=== PATIENT | male | born 1980 | race Caucasian/White ===

== ENCOUNTER 2021-12-30 07:22 | Outpatient (CLI) | payer BC, SELFPAY ==
--- NOTE | 2022-01-21 14:42 | WPDSLEEPSTUD ---
Sleep Study Date of Study: 12/30/21 Ordering Provider: Kaylie Rivera NP Interpreting Physician: Haylee Rowland DO Sleep Study Type: Polysomnogram Height: 1.78 m Weight: 72.575 kg Body Mass Index: 22.9 Neck Circumference (inches): 15 [place]: 4 Reason for Sleep Study Muscle jerks during sleep Sleep History The patient is a 41-year-old male with no major medical issues that had a sleep study ordered by his primary care for evaluation of muscle jerks during sleep. The patient rarely awakens from sleep short of breath. He rarely awakens at night with heartburn, belching or. He constantly snores loud enough that others complain. He occasionally has trouble sleeping when he has a cold. He denies waking up gasping for throughout the night. He occasionally has breathing problems at night observed by himself or others. He denies sweating excessively at night. He denies having heart palpitations or irregular heartbeats during the night. He occasionally falls asleep during the day but never while driving. Denies sleep paralysis, cataplexy and hypnagogic / hypnopompic hallucinations. He occasionally has trouble at school or work due to sleepiness. He denies having nightmares. He frequently remembers his dreams. He frequently has thoughts racing through his mind. He rarely feels sad or depressed. He frequently has anxiety. He rarely has muscular tension. He constantly notices parts of his body jerk. He constantly kicks during the night. He denies having crawling and aching feelings legs as well as leg pain during the night. He frequently grinds his teeth during sleep but denies awakening with morning jaw pain. He denies being bothered by pain during the day and being awakened by pain during the night. He denies waking feeling stiff in the morning. He denies waking up with sore or achy muscles. He denies waking up with pain the neck, spine and other joints. He goes to bed at 11:00 p.m. on both weekdays and weekends. It takes him 15-20 minutes to fall asleep. He wakes up 3 times throughout the night to urinate. He can fall back asleep within a few minutes. He wakes up at 8:30 a.m. on both weekdays and weekends. He typically gets 8-9 hours of sleep per night. He will stay in bed for 10 minutes after waking up in the morning. He currently lives with his and 4 children. He does not consume any caffeinated beverages within 2 hours of bedtime. He does not engage in physical exercise before bedtime. He will watch television before falling asleep. He does not take naps in afternoon or the evening. He drinks 3 cups of caffeinated beverage per day. He will drink wine twice per week. He denies tobacco and recreational drug use. [facility] Past Medical History Medical History Family history of prostate cancer in father Father was diagnosed with prostate cancer at 63. Surgical History Surgical History H/O vasectomy December 2020 Hx of LASIK both eyes, 09/2021 S/P ACL surgery Family History Family History Grandparent Cancer of unknown origin Father Malignant neoplasm of prostate Social History Social History Smoking status: Never smoker Alcohol intake: current Medications Home Medications Medication Instructions Recorded Confirmed Type multivit,Ca,min-iron 8 mg-folic 1 tablet PO .qd 11/26/21 12/11/21 History acid 200 mcg-lycopene 600 mcg tablet (Centrum Men) turmeric root extract 500 mg 500 mg PO DAILY 12/11/21 12/11/21 History capsule Sleep Procedure This test was performed using the [employer] multiple channel system including EOG, EEG, submental EMG, EKG, nasal and oral airflow using thermistors and nasal pressure sensors, chest and abdominal belts f
[2022-01-21 17:01] VITALS: BMI 22.9
== END 2021-12-31 06:47 | disposition home or self-care (01) ==
LOC: ANHCSM 07:23
PROVIDERS: PCP Internal Medicine; Visit Provider Nurse Practitioner
DX: G47.61 Periodic limb movement disorder (principal); R06.81 Apnea, not elsewhere classified; G25.81 Restless legs syndrome
CPT/HCPCS: 95810